=== PATIENT | female | born 1970 | race Caucasian/White ===

== ENCOUNTER 2017-10-28 12:53 | Outpatient (CLI) | payer OTHER | END 2017-10-28 12:54 | disposition home or self-care (01) | LOC: BICULT 12:53 | PROVIDERS: ATTEND Family Medicine | DX: Z12.31 Encounter for screening mammogram for malignant neoplasm of breast (principal); N92.6 Irregular menstruation, unspecified | CPT/HCPCS: 76856; 77063; 77067 ==

== ENCOUNTER 2019-05-18 14:25 | Outpatient (CLI) | payer OTHER ==
--- NOTE | 2019-05-18 15:00 | MMO ---
Bilateral MAMMO Bilat Screen [facility]. CLINICAL HISTORY: Patient is 48 years old and is seen for screening. The patient has no family history of breast cancer. The patient has no personal history of cancer. VIEWS: The views performed were: bilateral craniocaudal with tomosynthesis; bilateral mediolateral oblique with tomosynthesis; and bilateral exaggerated craniocaudal. FILMS COMPARED: The present examination has been compared to prior imaging studies performed at [facility] on 04/07/2013, 04/17/2014, 05/11/2015 and 10/28/2017. MAMMOGRAM FINDINGS: The breasts are heterogeneously dense, which could obscure a lesion on mammography. There are no suspicious masses, suspicious calcifications, or new areas of architectural distortion. IMPRESSION: THERE IS NO MAMMOGRAPHIC EVIDENCE OF MALIGNANCY. A ROUTINE FOLLOW-UP MAMMOGRAM IN 1 YEAR IS RECOMMENDED. THE RESULTS OF THIS EXAM WERE SENT TO THE PATIENT. ACR BI-RADS Category 1 - Negative MAMMOGRAPHY NOTE: 1. A negative mammogram report should not delay a biopsy if a dominant of clinically suspicious mass is present. 2. Approximately 10% to 15% of breast cancers are not detected by mammography. 3. Adenosis and dense breasts may obscure an underlying neoplasm. Reported by: CASTILLO PRUETT MD Electonically Signed: [id number]
== END 2019-05-18 14:26 | disposition home or self-care (01) ==
LOC: BICMAMMO 14:25
PROVIDERS: ATTEND Family Medicine
DX: Z12.31 Encounter for screening mammogram for malignant neoplasm of breast (principal)
CPT/HCPCS: 77063; 77067

== ENCOUNTER 2020-10-17 14:50 | Outpatient (CLI) | payer OTHER ==
--- NOTE | 2020-10-17 15:08 | RAD ---
EXAM: 3 views of the lumbosacral spine HISTORY: Low back pain with right-sided sciatica COMPARISON: None FINDINGS: 3 views of the lumbosacral spine shows normal height and alignment of the vertebral bodies without fracture or subluxation. Mild sclerotic curvature the spine is seen. Mild joint space narrowing is seen at L5/S1 with posterior facet arthrosis at this level. The sacroiliac joints are unremarkable. IMPRESSION: Mild degenerative changes of the lumbar spine without acute osseous abnormality.
--- NOTE | 2020-10-17 15:10 | RAD ---
XR Cerv Sp Ap Lat STANDARD History: Neck pain Comparison: None. Findings: No acute cervical spine fracture or malalignment. Low-grade left C1/C2 articulation narrowi ng. Visualized upper ribs are intact. Low-grade C3/C4, C4/C5 and C5/C6 degenerative disc space height los s. Mild C6/C7 degenerative disc space height loss. No significant listhesis. Paraspinal soft tissues are unremarkable. Impression: Low-grade mid cervical spondylosis.
== END 2020-10-17 14:51 | disposition home or self-care (01) ==
LOC: BICRAD 14:50
PROVIDERS: ATTEND Family Medicine
DX: M54.41 Lumbago with sciatica, right side (principal); M54.2 Cervicalgia; M47.812 Spondylosis without myelopathy or radiculopathy, cervical region; M47.816 Spondylosis without myelopathy or radiculopathy, lumbar region
CPT/HCPCS: 72040; 72100

== ENCOUNTER 2023-04-16 08:36 | Outpatient (CLI) | payer OTHER | END 2023-04-16 08:37 | disposition home or self-care (01) | LOC: BICMRI 08:36 | PROVIDERS: ATTEND Family Medicine | DX: R92.8 Other abnormal and inconclusive findings on diagnostic imaging of breast (principal); N60.01 Solitary cyst of right breast | CPT/HCPCS: A9577; C8908 ==

== ENCOUNTER 2023-10-26 10:59 | Outpatient (CLI) | payer OTHER | END 2023-10-26 11:00 | disposition home or self-care (01) | LOC: SCSRAD 10:59 | PROVIDERS: ATTEND Internal Medicine Rheumatology | DX: M06.09 Rheumatoid arthritis without rheumatoid factor, multiple sites (principal); R76.0 Raised antibody titer; R53.83 Other fatigue; Z79.899 Other long term (current) drug therapy ==